=== PATIENT | female | born 1995 | race American Indian/Alaskan Native ===

== ENCOUNTER 2018-06-09 13:37 | Emergency (ER) | payer MEDICAID ==
[2018-06-09 13:52] VITALS: BP 142/71
--- NOTE | 2018-06-09 13:56 | Emergency Department Report ---
Blank Doc - Documentation Documentation: 23 y o female presents with diarhrea after eating checkers 2 days ago no abd pain, dysuria, unsure of no vomitting ua , upt reevaaluate
[2018-06-09 14:27] LABS: Bacteria,Urine 1+ /HPF (Negative); Bilirubin,Urine NEG (Negative); Blood,Urine NEG (Negative); Color,Urine Yellow (Yellow); HCG Qualitative,Urine Negative (Negative); Mucus,Urine 3+ /HPF; Urobilinogen,Urine < 2.0 mg/dL (<2.0)
--- NOTE | 2018-06-09 15:38 | Emergency Department Report ---
ED Abdominal Pain HPI - General Chief Complaint: Abdominal Pain Stated Complaint: STOMACH PAIN Time Seen by Provider: 06/09/18 13:52 Source: patient Mode of arrival: Ambulatory Limitations: No Limitations - History of Present Illness Initial Comments: Patient is a 23-year-old asthmatic female who states that 7 days ago she ate something she thinks was bad she's had some upper abdominal discomfort with diarrhea since. Patient states that the upper abdominal discomfort and the diarrhea have almost resolved today but she hadn't had a chance to come to the hospital to get checked out. Patient denies any fever she is able to keep down water. Patient denies any lightheadedness on standing. Patient states that she has no abdominal pain at this time. Severity scale (0 -10): 0 - Related Data Previous Rx's Medication Instructions Recorded Last Taken Type Dicyclomine [Bentyl] 10 mg PO QID #15 capsule 06/09/18 Unknown Rx ED Review of Systems ROS: Stated complaint: STOMACH PAIN Other details as noted in HPI Comment: All other systems reviewed and negative ED Past Medical Hx - Social History Smoking Status: Never Smoker Substance Use Type: Alcohol, Marijuana - Medications Home Medications: Home Medications Medication Instructions Recorded Confirmed Last Taken Type Dicyclomine [Bentyl] 10 mg PO QID #15 capsule 06/09/18 Unknown Rx ED Physical Exam - General Limitations: No Limitations General appearance: alert, in no apparent distress - Head Head exam: Present: atraumatic, normocephalic - Eye Eye exam: Present: normal appearance - ENT ENT exam: Present: mucous membranes moist - Neck Neck exam: Present: normal inspection - Respiratory Respiratory exam: Present: normal lung sounds bilaterally. Absent: respiratory distress, wheezes, rales, rhonchi - Cardiovascular Cardiovascular Exam: Present: regular rate, normal rhythm. Absent: systolic murmur, diastolic murmur, rubs, gallop - GI/Abdominal GI/Abdominal exam: Present: soft, normal bowel sounds. Absent: distended, tenderness, guarding, rebound - Extremities Exam Extremities exam: Present: normal inspection - Back Exam Back exam: Present: normal inspection - Neurological Exam Neurological exam: Present: alert, oriented X3 - Psychiatric Psychiatric exam: Present: normal affect, normal mood - Skin Skin exam: Present: warm, dry, intact, normal color. Absent: rash ED Course Vital Signs 06/09/18 13:50 Temperature 98.5 F Pulse Rate 118 H Respiratory 18 Rate Blood Pressure 142/71 O2 Sat by Pulse 100 Oximetry ED Medical Decision Making - Lab Data Lab Results 06/09/18 Range/Units 14:13 Urine Color Yellow (Yellow) Urine Turbidity Cloudy (Clear) Urine pH 5.0 (5.0-7.0) Ur Specific [place] 1.021 (1.003-1.030) Urine Protein 30 mg/dl (Negative) mg/dL Urine Glucose (UA) Neg (Negative) mg/dL Urine Ketones 80 (Negative) mg/dL Urine Blood Neg (Negative) Urine Nitrite Neg (Negative) Ur Reducing Substances Not Reportable Urine Bilirubin Neg (Negative) Urine Ictotest Not Reportable Urine Urobilinogen < 2.0 (<2.0) mg/dL Ur Leukocyte Esterase Neg (Negative) Urine WBC (Auto) 5.0 (0.0-6.0) /HPF Urine RBC (Auto) 2.0 (0.0-6.0) /HPF U Epithel Cells (Auto) 42.0 H (0-13.0) /HPF Urine Bacteria (Auto) 1+ (Negative) /HPF Urine Mucus 3+ /HPF Urine HCG, Qual Negative (Negative) - Medical Decision Making Patient is given a prescription for Bentyl for some residual stomach cramps. Patient is instructed to orally hydrate at home with Gatorade or Pedialyte. Patient discharged. Critical care attestation.: If time is entered above; I have spent that time in minutes in the direct care of this critically ill patient, excluding procedure time. ED Disposition Clinical Impression: Gastritis Qualifiers: Gastritis type: unspecified gastritis Chronicity: acute Gastritis bleeding: presence of bleeding unspecified Qualified Code(s): K29.00 - Acute gastritis without bleeding Disposition: - TO HOME OR SELFCARE Is pt being admited?: No Does the pt Need Aspirin: No Condition: Stable Instructions: Abdominal Pain (ED) Referrals: ZACH SEPULVEDA MD [Primary Care Provider] - 3-5 Days Time of Disposition: 15:38
== END 2018-06-09 15:48 | disposition home or self-care (01) ==
LOC: ED 13:37
DX: K29.00 Acute gastritis without bleeding (principal); F12.10 Cannabis abuse, uncomplicated
CPT/HCPCS: 81001; 81025; 99283

== ENCOUNTER 2019-09-27 12:52 | Emergency (ER) | payer SELFPAY ==
[2019-09-27 13:24] VITALS: BP 143/81
[2019-09-27 14:48] LABS: Bacteria,Urine 1+ /HPF (Negative); Bilirubin,Urine NEG (Negative); Blood,Urine NEG (Negative); Color,Urine Yellow (Yellow); Mucus,Urine 3+ /HPF
[2019-09-27 14:49] LABS: RBC,Urine < 1.0 /HPF (0.0-6.0)
[2019-09-27 14:50] LABS: HCG Qualitative,Urine Positive (Negative)
--- NOTE | 2019-09-27 16:40 | Emergency Department Report ---
ED General Adult HPI - General Chief complaint: Abdominal Pain Stated complaint: ABD PAIN PUI?: No Time Seen by Provider: 09/27/19 15:40 Source: patient Mode of arrival: Ambulatory Limitations: No Limitations - History of Present Illness Initial comments: This is a 24-year-old G1, P0 who presents the ED complaining of nausea for the past 2 weeks related to hold fluids down. Patient states last menstrual. Was August 30, 2019. Patient states that she thinks she may be but is unsure. Patient has not had any abdominal pain, diarrhea, vaginal bleeding, pelvic pain or any other symptoms. - Related Data Previous Rx's Medication Instructions Recorded Last Taken Type Dicyclomine [Bentyl] 10 mg PO QID #15 capsule 06/09/18 Unknown Rx Nitrofurantoin [place]/M-Cryst 100 mg PO Q12HR #14 capsule 09/27/19 Unknown Rx [Macrobid CAP] Allergies Allergy/AdvReac Type Severity Reaction Status Date / Time No Known Allergies Allergy Verified 09/27/19 13:21 ED Review of Systems ROS: Stated complaint: ABD PAIN Other details as noted in HPI Comment: All other systems reviewed and negative ED Past Medical Hx - Past Medical History Previous Medical History?: No - Surgical History Past Surgical History?: No - Social History Smoking Status: Current Every Day Smoker Substance Use Type: Alcohol, Marijuana - Medications Home Medications: Home Medications Medication Instructions Recorded Confirmed Last Taken Type Dicyclomine [Bentyl] 10 mg PO QID #15 capsule 06/09/18 Unknown Rx Nitrofurantoin [place]/M-Cryst 100 mg PO Q12HR #14 capsule 09/27/19 Unknown Rx [Macrobid CAP] ED Physical Exam - General Limitations: No Limitations General appearance: alert, in no apparent distress - Head Head exam: Present: atraumatic, normocephalic - Eye Eye exam: Present: normal appearance - ENT ENT exam: Present: mucous membranes moist - Neck Neck exam: Present: normal inspection - Respiratory Respiratory exam: Present: normal lung sounds bilaterally. Absent: respiratory distress - Cardiovascular Cardiovascular Exam: Present: regular rate, normal rhythm. Absent: systolic murmur, diastolic murmur, rubs, gallop - GI/Abdominal GI/Abdominal exam: Present: soft, normal bowel sounds - Extremities Exam Extremities exam: Present: normal inspection - Back Exam Back exam: Present: normal inspection - Neurological Exam Neurological exam: Present: alert, oriented X3 - Psychiatric Psychiatric exam: Present: normal affect, normal mood - Skin Skin exam: Present: warm, dry, intact, normal color. Absent: rash ED Course Vital Signs 09/27/19 09/27/19 13:19 13:21 Temperature 98.2 F Pulse Rate 116 H Respiratory 19 Rate Blood Pressure 143/81 O2 Sat by Pulse 100 Oximetry ED Medical Decision Making - Lab Data Laboratory Last Values Urine Color Yellow (Yellow) 09/27/19 14:16 Urine Turbidity Slightly-cloudy (Clear) 09/27/19 14:16 Urine pH 6.0 (5.0-7.0) 09/27/19 14:16 Ur Specific [place] 1.024 (1.003-1.030) 09/27/19 14:16 Urine Protein 30 mg/dl mg/dL (Negative) 09/27/19 14:16 Urine Glucose (UA) Neg mg/dL (Negative) 09/27/19 14:16 Urine Ketones 20 mg/dL (Negative) 09/27/19 14:16 Urine Blood Neg (Negative) 09/27/19 14:16 Urine Nitrite Neg (Negative) 09/27/19 14:16 Urine Bilirubin Neg (Negative) 09/27/19 14:16 Urine Urobilinogen 2.0 mg/dL (<2.0) 09/27/19 14:16 Ur Leukocyte Esterase Tr (Negative) 09/27/19 14:16 Urine WBC (Auto) 16.0 /HPF (0.0-6.0) H 09/27/19 14:16 Urine RBC (Auto) < 1.0 /HPF (0.0-6.0) 09/27/19 14:16 U Epithel Cells (Auto) 8.0 /HPF (0-13.0) 09/27/19 14:16 Urine Bacteria (Auto) 1+ /HPF (Negative) 09/27/19 14:16 Urine Mucus 3+ /HPF 09/27/19 14:16 Urine HCG, Qual Positive (Negative) A 09/27/19 14:16 - Medical Decision Making 24-year-old female who presents with nausea secondary to positive . Urinalysis urinalysis was positive for bacteria and leukocyte esterase will treat for UTI. test is positive. I discussed this findings with the patient. I gave patient referral to [facility] to follow-up as soon as possible. Patient is not having any other symptoms at this time. Vital signs are normal she is in no acute distress. Critical care attestation.: If time is entered above; I have spent that time in minutes in the direct care of this critically ill patient, excluding procedure time. ED Disposition Clinical Impression: Positive test, UTI (urinary tract infection) Disposition: TO HOME OR SELFCARE Is pt being admited?: No Does the pt Need Aspirin: No Condition: Stable Instructions: Abdominal Pain (ED), (ED), Urinary Tract Infection in Women (ED) Additional Instructions: Make sure to follow up with the primary care physician as discussed. Take all your medications as you've been prescribed. If you have any worsening symptoms or develop new symptoms please return to ED immediately. Prescriptions: Nitrofurantoin [place]/M-Cryst [Macrobid CAP] 100 mg PO Q12HR #14 capsule Referrals: PRIMARY CARE, [Primary Care Provider] - 3-5 Days [facility] [Provider Group] - 3-5 Days [facility] [Provider Group] - 3-5 Days [facility] [Provider Group] - 3-5 Days Forms: Work/School Release Form(ED) Time of Disposition: 16:37
== END 2019-09-27 16:49 | disposition home or self-care (01) ==
LOC: ED 12:52
DX: O23.31 Infections of other parts of urinary tract in pregnancy, first trimester (principal); Z3A.01 Less than 8 weeks gestation of pregnancy
CPT/HCPCS: 81001; 81025; 87086; 99283

== ENCOUNTER 2020-05-20 13:20 | Inpatient (IN) | payer OTHER ==
[2020-05-20] MEDS ORDERED: ePHEDrine SULFATE 50 MG/1 ML INJ IV PRN ×2 (15:13→17:22)
[2020-05-20] MEDS ORDERED: miSOPROStol 200 MCG TAB PR PRN (15:13)
[2020-05-20] MEDS ORDERED: fentaNYL 100 MCG/2 ML INJ IV PRN (15:13)
[2020-05-20] MEDS ORDERED: TERBUTALINE 1 MG/1 ML INJ SUB-Q PRN (15:13)
[2020-05-20] MEDS ORDERED: BUTORPHANOL 2 MG/1 ML INJ IV PRN ×2 (15:13)
[2020-05-20] MEDS ORDERED: NALOXONE 0.4 MG/1 ML INJ IV PRN (15:13)
[2020-05-20] MEDS ORDERED: LIDOCAINE (2%) 20 MG/1 ML VIAL 20 ML MDV INFILTRATI ONE (15:13)
[2020-05-20] MEDS ORDERED: METHYLERGONOVINE MALEATE 0.2 MG/ML VIAL IM PRN (15:13)
[2020-05-20] MEDS ORDERED: ONDANSETRON 4 MG/2 ML INJ IV PRN (15:13)
[2020-05-20] MEDS ORDERED: PROMETHAZINE 25 MG TAB PO PRN (15:13)
[2020-05-20] MEDS ORDERED: LACTATED RINGERS 1,000 ML IV SCH (15:15)
[2020-05-20 15:38] LABS: Hematocrit 28.9 % (30.3-42.9); Hemoglobin 9.4 gm/dl (10.1-14.3); Mean Corpuscular HGB Conc 33 % (30-34); Mean Corpuscular Volume 76 fl (79-97); Platelet Count 221 K/mm3 (140-440); Red Blood Count 3.79 M/mm3 (3.65-5.03); Red Cell Distribution Width 16.2 % (13.2-15.2)
[2020-05-20] MEDS ORDERED: OXYTOCIN DRIP 30 UNITS/500 ML BAG IV SCH ×2 (16:00→20:00)
[2020-05-20] MEDS ORDERED: NALOXONE 2 MG/2 ML INJ IV PRN (17:22)
--- NOTE | 2020-05-20 17:22 | Anesthesia Consultation ---
Anesthesia Consult and Med Hx Date of service: 05/20/20 - Airway Anesthetic Teeth Evaluation: Good ROM Head & Neck: Adequate Mental/Hyoid Distance: Adequate Mallampati Class: Class II Intubation Access Assessment: Probably Good - Pulmonary Exam CTA: Yes - Cardiac Exam Cardiac Exam: RRR - Pre-Operative Health Status ASA Pre-Surgery Classification: ASA2 Proposed Anesthetic Plan: Epidural - Pulmonary Hx Asthma: No COPD: No Hx Pneumonia: No - Cardiovascular System Hx Hypertension: No - Central Nervous System Hx Seizures: No Hx Psychiatric Problems: No - Endocrine Hx Renal Disease: No Hx End Stage Renal Disease: No Hx Hypothyroidism: No Hx Hyperthyroidism: No - Hematic Hx Anemia: No Hx Sickle Cell Disease: No - Other Systems Hx Alcohol Use: No
--- NOTE | 2020-05-20 17:37 | Progress Note ---
Labor Epidural - Labor Epidural Start Time: 17:26 Stop Time: 17:37 Performed by:: DOUGLAS JOHNSON Procedure: Patient is requesting epidural for labor pain. H&P, and labs reviewed. Procedure explained, questions answered, consent obtained. Patient in sitting position with blood pressure cuff and pulse ox on and working. Timeout performed immediately before start of procedure. Sterile betadine prep/drape. 3 mL 1% lidocaine skin wheal at L[3]-L[4]. 18-gauge ForMune epidural needle advanced to [id number] with saline at [7] cm. Epidural dexmedetomidine [30] mcg administered. Epidural catheter advanced to [12] cm, negative aspiration for blood and csf, negative test dose 3 ml 1.5% lidocaine with epinephrine. Sterile steri-strips and tegaderm applied, followed by tape reinforcement. Patient tolerated procedure well. Jonathan BROOKS
[2020-05-20] MEDS ORDERED: fentaNYL-BUPIV 2 MCG/ML-0.125% 200 MCG/100 ML BAG EPIDURAL SCH (18:00)
[2020-05-20] MEDS ORDERED: MINERAL OIL 30 ML ORAL LIQD PO PRN (19:00)
--- NOTE | 2020-05-20 19:41 | History and Physical Report ---
History of Present Illness Date of examination: 05/20/20 Date of admission: 05/20/20 15:26 Chief complaint: "I'm having contractions" History of present illness: 25 yo at 39w2d EGA by 12 week ultrasound not c/w LMP who presents with regular contractions since last night. She denies vaginal bleeding or LOF. Endorses good movement. She received care from [facility]. Her course is complicated by limited care, she has not been seen since GA 32w, and elevated carrier risk for SMA. Unknown SMA status for FOB. GBS unknown. Past History Past Medical History: no pertinent history Family/Genetic History: diabetes - Obstetrical History Expected Date of Delivery: 05/24/20 Actual Gestation: 39 Week(s) 3 Day(s) : 1 Para: 0 Hx # Term Pregnancies: 0 Number of Pregnancies: 0 Spontaneous Abortions: 0 Induced : 0 Number of Living Children: 0 Medications and Allergies Allergies Allergy/AdvReac Type Severity Reaction Status Date / Time No Known Allergies Allergy Verified 09/27/19 13:21 Home Medications Medication Instructions Recorded Confirmed Last Taken Type Iron 1 tab PO DAILY 05/20/20 05/20/20 Unknown History Vitamin 1 tab PO DAILY 05/20/20 05/20/20 Unknown History Active Meds: Active Medications Butorphanol Tartrate (Butorphanol 2 Mg/1 Ml Inj) 1 mg IV Q2H PRN PRN Reason: Pain, Moderate(4-6) LABOR PAIN Butorphanol Tartrate (Butorphanol 2 Mg/1 Ml Inj) 2 mg IV Q2H PRN PRN Reason: Pain , Severe (7-10) Last Admin: 05/20/20 16:06 Dose: 2 mg Documented by: Ephedrine Sulfate (Ephedrine Sulfate 50 Mg/1 Ml Inj) 10 mg IV Q2M PRN PRN Reason: Hypotension Fentanyl (Fentanyl 100 Mcg/2 Ml Inj) 100 mcg IV Q2H PRN PRN Reason: Pain,Severe (7-10) LABOR PAIN Lactated Ringer's (Lactated Ringers) 1,000 mls @ 125 mls/hr IV DIRECT KAITLIN Last Admin: 05/20/20 16:52 Dose: 125 mls/hr Documented by: Oxytocin/Sodium Chloride (Pitocin/Ns 30 Unit/500ml) 30 units in 500 mls @ 40 mls/hr IV TITR KAITLIN; Protocol Fentanyl/Bupivacaine/Sodium Chlor (Fentanyl-Bupiv 2 Mcg/Ml-0.125%) 200 mcg in 100 mls @ 12 mls/hr EPIDURAL TITR KAITLIN; Protocol Last Admin: 05/20/20 18:34 Dose: 12 mls/hr Documented by: Methylergonovine Maleate (Methylergonovine Maleate 0.2 Mg/Ml Vial) 0.2 mg IM ONCE PRN PRN Reason: Uterine Bleeding Mineral Oil (Mineral Oil 30 Ml Oral Liqd) 30 ml PO QHS PRN PRN Reason: Constipation Misoprostol (Misoprostol 200 Mcg Tab) 800 mcg OH ONCE PRN PRN Reason: Uterine Bleeding Naloxone HCl (Naloxone 2 Mg/2 Ml Inj) 0.2 mg IV Q5M PRN PRN Reason: Respiratory sedation Ondansetron HCl (Ondansetron 4 Mg/2 Ml Inj) 4 mg IV Q8H PRN PRN Reason: Nausea And Vomiting Promethazine HCl (Promethazine 25 Mg Tab) 25 mg PO Q6H PRN PRN Reason: Nausea And Vomiting Terbutaline Sulfate (Terbutaline 1 Mg/1 Ml Inj) 0.25 mg SUB-Q ONCE PRN PRN Reason: Hyperstimulation/Hypertonicity Review of Systems All systems: negative Genitourinary: contractions, no vaginal bleeding, no leakage of fluid - Vital Signs Vital signs: Vital Signs Resp 18 05/20/20 16:06 Temp Pulse Resp BP Pulse Ox 97.6 F 92 H 18 123/73 100 05/20/20 16:28 05/20/20 19:28 05/20/20 16:28 05/20/20 19:28 05/20/20 19:27 - Physical Exam Genitourinary (Female): Positive: normal external genitalia. Negative: perineal/vulvar lesions Vagina: Positive: normal moisture Uterus: Positive: enlarged (gravid), normal contour. Negative: tender - Obstetrical FHR: auscultation normal Uterine Contraction Monitor Mode: External Cervical Dilatation: 5 Cervical Effacement Percentage: 90 station: -2 Uterine Contraction Duration: 7-8 Uterine Contraction Pattern: Regular Results Result Diagrams: 05/20/20 15:25 Abnormal lab results 05/20/20 Range/Units 15:25 WBC 11.7 H (4.5-11.0) K/mm3 Hgb 9.4 L (10.1-14.3) gm/dl Hct 28.9 L (30.3-42.9) % MCV 76 L (79-97) fl MCH 25 L (28-32) pg RDW 16.2 H (13.2-15.2) % All other labs normal. Assessment and Plan A: 25yo EGA 39w2d by 12w US not c/w LMP Active labor GBS unknown Pt has epidural anesthesia Vertex position confirmed by US today P: Admit to L&D AROM at 19:30 with light meconium staining Initiate Ampicillin if membranes rupture >18 hours or maternal fever/ tachycardia Anticipate
[2020-05-20] MEDS ORDERED: D5W/LACTATED RINGERS 500 ML IV SCH (20:00)
[2020-05-20] MEDS ORDERED: D5W/LACTATED RINGERS 1,000 ML IV SCH (20:00)
--- NOTE | 2020-05-20 20:22 | Ultrasound Report ---
ULTRASOUND OBSTETRIC LIMITED INDICATION / CLINICAL INFORMATION: presentation. Clinical Gestational Age (GA): 38 weeks. 4 days COMPARISON: None available. FINDINGS: HEART RATE (beats per minute): 117 PRESENTATION: Cephalic. ADDITIONAL FINDINGS: None. IMPRESSION: 1. Cephalic presentation. Signer Name: Martir Bartholomew MD Signed: 05/20/2020 8:18 PM Workstation Name: [id number]
[2020-05-21] MEDS ORDERED: diphenhydrAMINE 25 MG CAP PO PRN (04:07)
[2020-05-21] MEDS ORDERED: BENZOCAINE/MENTHOL 20/0.5% TOP SPRAY 56 GM TP PRN (04:07)
[2020-05-21] MEDS ORDERED: PROMETHAZINE 25 MG TAB PO PRN (04:07)
[2020-05-21] MEDS ORDERED: ONDANSETRON 4 MG/2 ML INJ IV PRN (04:07)
[2020-05-21] MEDS ORDERED: LANOLIN/ZINC/DIMETHICONE (LANSINOH) 7 GM TP PRN (04:07)
[2020-05-21] MEDS ORDERED: MAGNESIUM HYDROXIDE (MOM) ORAL LIQD UDC PO PRN (04:07)
[2020-05-21] MEDS ORDERED: WITCH HAZEL/ GLYCERIN PAD TP PRN (04:07)
[2020-05-21] MEDS ORDERED: PROMETHAZINE 25 MG RECT SUPP PR PRN (04:07)
--- NOTE | 2020-05-21 04:12 | Procedure Note ---
OB Delivery Note - Delivery Date of Delivery: 05/21/20 Surgeon: RENITA BURNETTE (Vinod Vick, [facility]) Estimated blood loss: 200cc - Vaginal Delivery presentation: vertex Delivery position: OA Intrapartum events: PROM->1hr before delivery, meconium, mult.variable deceleratio, shoulder dystocia (2min shoulder resolved with delivery of posterior arm) Delivery induction: none Delivery augmentation: rupture of membranes, pitocin Delivery monitor: external FHT, external uterine Delivery placenta: spontaneous Delivery cord: 3 umbilical vessels Episiotomy: none Delivery laceration: none Anesthesia: epidural Delivery comments: Good maternal effort progressed to of viable female over intact perineum. Slow delivery of head, OA, no restitution. 2 minute shoulder dystocia, 30 seconds Juan Carlos Maneuver, followed by resolution with delivery of the posterior arm. Cord immediately clamped and cut and brought to warmer for NICU team assessment. Cord blood gases collected. Placenta delivered with gentle traction, intact, 3VC, sent to pathology for meconium staining. Pitocin administered IV. EBL 200mL. No lacerations, vulvar edema, ice pad placed on v ulva. Mother and infant bonding well. Bottle feeding. - Infant A at 1 minute: 7 (6lb 14oz) at 5 minutes: 9 Infant Gender: Female
[2020-05-21 05:02] LABS: ABG Base Excess -5.5 mmol/L (-2.0-3.0); ABG Oxygen Saturation 58.5 % (95.0-99.0); ABG PCO2 44.6 mm Hg; ABG PH 7.291 pH Units (7.350-7.450)
[2020-05-21 05:11] LABS: ABG PO2 25.7 mm Hg (80.0-90.0)
[2020-05-21] MEDS: IBUPROFEN 600 MG TAB PO SCH ×4 (06:37→23:19)
--- NOTE | 2020-05-21 09:32 | Post Anesthesia Evaluation ---
- Post Anesthesia Evaluation Patient Participated: Yes Airway Patent: Yes Stable Respiratory Function: Yes Nausea/Vomiting: No Temp > 96.8F: Yes Pain Manageable: Yes Adequeate Hydration: Yes Anesthesia Complications: No Block Receding Appropriately: Yes Patient on Ventilator: No
--- NOTE | 2020-05-21 11:14 | Progress Note ---
Assessment and Plan - Patient Problems (1) Vaginal delivery Current Visit: Yes Status: Acute Plan to address problem: patient doing well Subjective - Subjective Date of service: 05/21/20 Interval history: Patient complains of minor perineal discomfort after delivery. Lochia is minimal. Patient reports: appetite normal, voiding normally, pain well controlled [place]: doing well Objective - Vital Signs Latest vital signs: Vital Signs Temp Pulse Resp BP BP Pulse Ox 05/21/20 08:29 98.3 F 86 18 136/76 99 05/21/20 06:00 99.7 F H 89 18 151/72 100 05/21/20 05:44 88 143/68 05/21/20 05:43 89 100 05/21/20 05:38 90 100 05/21/20 05:33 93 H 100 05/21/20 05:28 87 141/67 99 05/21/20 05:23 88 99 05/21/20 05:18 87 98 05/21/20 05:13 84 131/63 98 05/21/20 05:08 89 99 05/21/20 05:03 86 99 05/21/20 04:58 87 147/83 100 05/21/20 04:53 89 98 05/21/20 04:48 93 H 100 05/21/20 04:44 102 H 155/84 05/21/20 04:43 104 H 100 05/21/20 04:38 105 H 100 05/21/20 04:33 94 H 99 05/21/20 04:28 98 H 160/91 99 05/21/20 04:23 102 H 100 05/21/20 04:18 109 H 100 05/21/20 04:14 109 H 156/90 05/21/20 04:13 109 H 100 05/21/20 04:10 99.9 F H 18 99 05/21/20 04:08 107 H 99 05/21/20 04:03 107 H 100 05/21/20 03:59 110 H 154/90 05/21/20 03:58 107 H 100 05/21/20 03:53 115 H 100 05/21/20 03:51 82 L 05/21/20 03:48 165 H 100 05/21/20 03:46 52 L 72 L 05/21/20 03:44 150 H 112/70 05/21/20 03:43 124 H 100 05/21/20 03:38 154 H 97 05/21/20 03:34 54 L 87 05/21/20 03:33 119 H 100 05/21/20 03:28 154 H 100 05/21/20 03:23 147 H 100 05/21/20 03:22 118 H 84 05/21/20 03:18 154 H 100 05/21/20 03:13 128 H 100 05/21/20 03:12 149 H 93 05/21/20 03:08 150 H 100 05/21/20 03:07 122 H 136/81 05/21/20 03:03 112 H 100 05/21/20 02:58 135 H 100 05/21/20 02:53 127 H 100 05/21/20 02:52 52 L 0 L 05/21/20 02:48 118 H 94 05/21/20 02:43 106 H 129/69 98 05/21/20 02:37 124 H 100 05/21/20 02:32 128 H 99 05/21/20 02:28 129 H 145/69 05/21/20 02:27 125 H 100 05/21/20 02:22 104 H 100 05/21/20 02:17 115 H 99 05/21/20 02:15 115 H 146/91 05/21/20 02:12 120 H 100 05/21/20 02:07 123 H 100 05/21/20 02:02 112 H 100 05/21/20 01:58 100 H 148/78 05/21/20 01:57 92 H 100 05/21/20 01:52 113 H 100 05/21/20 01:47 124 H 100 05/21/20 01:44 100 H 159/84 05/21/20 01:42 97 H 99 05/21/20 01:37 95 H 100 05/21/20 01:32 104 H 100 05/21/20 01:31 103 H 152/88 05/21/20 01:27 105 H 100 05/21/20 01:22 108 H 99 05/21/20 01:17 93 H 100 05/21/20 01:14 96 H 153/82 05/21/20 01:12 103 H 100 05/21/20 01:07 105 H 98 05/21/20 01:02 96 H 99 05/21/20 00:58 100 H 147/93 05/21/20 00:57 96 H 99 05/21/20 00:52 104 H 98 05/21/20 00:47 125 H 80 L 05/21/20 00:45 111 H 145/96 05/21/20 00:42 100 H 100 05/21/20 00:37 98 H 100 05/21/20 00:32 109 H 99 05/21/20 00:30 117 H 138/85 05/21/20 00:27 99 H 99 05/21/20 00:22 101 H 100 05/21/20 00:17 103 H 100 05/21/20 00:14 91 H 134/90 05/21/20 00:12 89 100 05/21/20 00:07 92 H 100 05/21/20 00:02 88 99 05/20/20 23:59 88 130/84 05/20/20 23:57 91 H 99 05/20/20 23:52 93 H 100 05/20/20 23:50 99.1 F 18 05/20/20 23:47 93 H 100 05/20/20 23:45 91 H 134/76 05/20/20 23:42 77 100 05/20/20 23:37 80 99 05/20/20 23:32 90 98 05/20/20 23:29 107 H 125/71 05/20/20 23:27 89 100 05/20/20 23:22 84 99 05/20/20 23:17 84 99 05/20/20 23:14 83 131/71 05/20/20 23:12 87 100 05/20/20 23:07 85 99 05/20/20 23:02 91 H 100 05/20/20 23:00 86 115/63 05/20/20 22:57 85 100 05/20/20 22:52 89 100 05/20/20 22:47 87 100 05/20/20 22:45 86 130/75 05/20/20 22:42 86 100 05/20/20 22:37 95 H 100 05/20/20 22:32 86 100 05/20/20 22:30 98 H 107/74 05/20/20 22:27 94 H 97 05/20/20 22:25 98.1 F 18 100 05/20/20 22:22 124 H 97 05/20/20 22:17 97 H 100 05/20/20 22:15 92 H 119/75 05/20/20 22:12 116 H 100 05/20/20 22:07 92 H 99 05/20/20 22:02 93 H 99 05/20/20 21:58 90 120/69 05/20/20 21:57 89 100 05/20/20 21:52 91 H 100 05/20/20 21:47 92 H 100 05/20/20 21:43 89 111/59 05/20/20 21:42 88 99 05/20/20 21:37 85 99 05/20/20 21:32 85 99 05/20/20 21:29 83 119/65 05/20/20 21:27 97 H 100 05/20/20 21:22 91 H 99 05/20/20 21:17 82 100 05/20/20 21:14 85 124/73 05/20/20 21:12 86 100 05/20/20 21:07 86 100 05/20/20 21:02 98 H 100 05/20/20 20:59 92 H 117/58 05/20/20 20:57 93 H 100 05/20/20 20:53 96 H 81 L 05/20/20 20:52 95 H 98 05/20/20 20:47 81 100 05/20/20 20:45 80 130/66 05/20/20 20:42 89 100 05/20/20 20:37 89 100 05/20/20 20:32 92 H 100 05/20/20 20:30 83 133/69 05/20/20 20:27 86 99 05/20/20 20:22 82 100 05/20/20 20:17 84 99 05/20/20 20:16 82 125/72 05/20/20 20:12 87 100 05/20/20 20:07 79 98 05/20/20 20:02 81 100 05/20/20 19:59 84 117/59 05/20/20 19:57 86 100 05/20/20 19:52 83 100 05/20/20 19:47 82 100 05/20/20 19:43 86 123/73 05/20/20 19:42 87 100 05/20/20 19:38 98.1 F 18 L 05/20/20 19:37 82 100 05/20/20 19:32 90 100 05/20/20 19:28 92 H 123/73 05/20/20 19:27 106 H 100 05/20/20 19:22 94 H 100 05/20/20 19:17 86 100 05/20/20 19:12 100 H 122/74 100 05/20/20 19:10 77 120/68 05/20/20 19:07 96 H 100 05/20/20 19:04 79 111/61 05/20/20 19:02 79 100 05/20/20 19:01 74 120/64 05/20/20 18:57 77 111/58 100 05/20/20 18:55 82 111/55 05/20/20 18:52 80 118/67 100 05/20/20 18:49 78 125/71 05/20/20 18:47 81 100 05/20/20 18:46 81 117/66 05/20/20 18:42 81 129/69 100 05/20/20 18:39 80 120/68 05/20/20 18:37 78 100 05/20/20 18:36 77 115/64 05/20/20 18:34 77 113/66 05/20/20 18:32 77 100 05/20/20 18:31 78 114/57 05/20/20 18:28 75 122/65 05/20/20 18:27 77 100 05/20/20 18:24 77 105/59 05/20/20 18:22 77 99 05/20/20 18:21 76 108/60 05/20/20 18:18 75 117/63 05/20/20 18:17 82 98 05/20/20 18:15 78 113/58 05/20/20 18:12 74 114/58 100 05/20/20 18:09 75 110/56 05/20/20 18:07 78 115/59 99 05/20/20 18:03 84 119/58 05/20/20 18:02 80 98 05/20/20 18:01 75 116/56 05/20/20 17:58 80 124/60 05/20/20 17:57 82 99 05/20/20 17:55 76 115/59 05/20/20 17:52 83 125/69 99 05/20/20 17:49 82 137/67 05/20/20 17:47 84 99 05/20/20 17:46 80 131/80 05/20/20 17:42 82 100 05/20/20 17:40 85 140/81 05/20/20 17:37 88 100 05/20/20 17:36 88 154/87 05/20/20 17:32 76 100 05/20/20 17:27 95 H 100 05/20/20 17:22 81 100 05/20/20 17:07 65 132/62 05/20/20 16:55 85 100 05/20/20 16:50 84 100 05/20/20 16:46 83 94 05/20/20 16:45 79 99 05/20/20 16:40 84 99 05/20/20 16:35 83 96 05/20/20 16:30 84 98 05/20/20 16:29 80 125/65 05/20/20 16:28 97.6 F 85 18 125/65 97 05/20/20 16:25 83 98 05/20/20 16:20 85 100 05/20/20 16:15 82 99 05/20/20 16:10 85 99 05/20/20 16:06 18 Intake and Output 05/20/20 05/21/20 05/21/20 22:59 06:59 14:59 Intake Total 5.067 100 240 Output Total 300 Balance 5.067 100 -60 Intake: IV 5.067 PITOCin/NS 30 UNIT/500ML 5.067 30 units In 500 ml @ 2 MILLIUNITS/MIN 2 mls/hr IV TITR KAITLIN Rx#:[id number] Oral 100 240 Output: Urine 300 Void 300 Other: Total, Intake Amount 100 240 Total, Output Amount 300 # Voids Void 2 Estimated Blood Loss 200 - Labs Labs: Abnormal lab results 05/20/20 05/21/20 Range/Units 15:25 04:02 WBC 11.7 H (4.5-11.0) K/mm3 Hgb 9.4 L (10.1-14.3) gm/dl Hct 28.9 L (30.3-42.9) % MCV 76 L (79-97) fl MCH 25 L (28-32) pg RDW 16.2 H (13.2-15.2) % ABG pH 7.291 L (7.350-7.450) pH Units ABG pO2 25.7 L* (80.0-90.0) mm Hg ABG O2 Saturation 58.5 L (95.0-99.0) % ABG Base Excess -5.5 L (-2.0-3.0) mmol/L Oxyhemoglobin 57.2 L (95.0-99.0) %
[2020-05-21 20:02] LABS: Hematocrit 25.1 % (30.3-42.9); Hemoglobin 8.1 gm/dl (10.1-14.3)
[2020-05-22] MEDS: IBUPROFEN 600 MG TAB PO SCH ×3 (05:31→17:49)
--- NOTE | 2020-05-22 08:12 | Progress Note ---
Assessment and Plan A: PPD1 s/p at term GBS unknown Insufficient care P: Continue with routine care. Subjective - Subjective Date of service: 05/22/20 Principal diagnosis: s/p at term Interval history: Patient feeling well, still reporting some perineal discomfort and decreasing lochia. Patient reports: appetite normal, voiding normally, pain well controlled, ambulating normally [place]: doing well Objective - Vital Signs Latest vital signs: Vital Signs Temp Pulse Resp BP BP Pulse Ox 05/22/20 05:31 18 05/22/20 00:36 98.0 F 82 18 133/77 97 05/21/20 23:19 20 05/21/20 21:26 98 F 74 16 125/79 05/21/20 20:32 98.0 F 84 18 155/91 100 05/21/20 16:45 97.6 F 82 18 145/82 97 05/21/20 08:29 98.3 F 86 18 136/76 99 Intake and Output 05/21/20 05/22/20 05/22/20 23:59 07:59 15:59 Intake Total 1320 540 Balance 1320 540 Intake: Oral 480 240 Intake, Free Water 840 300 Other: Total, Intake Amount 480 240 # Voids Void 1 1 - Exam Uterus: Present: firm, fundal height at umbilicus - Labs Labs: Abnormal lab results 05/21/20 Range/Units 19:07 Hgb 8.1 L (10.1-14.3) gm/dl Hct 25.1 L (30.3-42.9) %
--- NOTE | 2020-05-22 08:45 | Discharge Summary ---
Providers - Providers Date of Admission: 05/20/20 15:26 Date of discharge: 05/23/20 Attending physician: GUS KU Primary care physician: GUS KU Hospitalization Delivery: Episiotomy: none Laceration: none Other procedures: none complications: none Discharge diagnosis: IUP at term delivered [place] baby: female Condition at discharge: Good Disposition: DC-01 TO HOME OR SELFCARE Plan - Provider Discharge Summary Activity: no sex for 6 weeks, no heavy lifting 4 weeks, no strenuous exercise Diet: routine Instructions: routine Additional instructions: [] Smoking cessation referral if applicable(refer to patient education folder for contact #) [] Refer to [facility]'s [facility] Booklet Call your doctor immediately for: * Fever > 100.5 * Heavy vaginal bleeding ( >1 pad per hour) * Severe persistent headache * Shortness of breath * Reddened, hot, painful area to leg or breast * Drainage or odor from incision. * Keep incision clean and dry at all times and follow doctor's instructions regarding bathing/showering - Follow up plan Follow up: RENITA BURNETTE CNM [Advanced Practice Nurse] - 06/19/20
[2020-05-22] MEDS: FERROUS SULFATE 325 MG TAB PO SCH ×2 (11:05→21:56)
[2020-05-23] MEDS: IBUPROFEN 600 MG TAB PO SCH ×2 (01:23→06:19)
[2020-05-23 12:44] VITALS: BP 144/92
== END 2020-05-23 15:35 | disposition home or self-care (01) | DRG 775 ==
LOC: TRG 13:20 → APU 13:21 → TRG 15:22 → LD 15:26 → OB 05-21 05:55
PROVIDERS: ADMIT Obstetrics & Gynecology; ATTEND Obstetrics & Gynecology
PROC: 3E0R3BZ Introduction of Anesthetic Agent into Spinal Canal, Percutaneous Approach (ICD-10-PCS; 2020-05-20)
PROC: 00HU33Z Insertion of Infusion Device into Spinal Canal, Percutaneous Approach (ICD-10-PCS; 2020-05-20)
PROC: 10E0XZZ Delivery of Products of Conception, External Approach (ICD-10-PCS; principal; 2020-05-21)
DX: O77.0 Labor and delivery complicated by meconium in amniotic fluid (principal); O76 Abnormality in fetal heart rate and rhythm complicating labor and delivery; O66.0 Obstructed labor due to shoulder dystocia; Z37.0 Single live birth; Z3A.39 39 weeks gestation of pregnancy; Z20.822 Contact with and (suspected) exposure to COVID-19
CPT/HCPCS: 36415; 76815; 82803; 85014; 85018; 85027; 86592; 86850; 86900; 86901; 88307; G0378; J0595; J2590; J7120; J7121; U0003